=== PATIENT | male | born 1970 | race Caucasian/White ===

== ENCOUNTER 2020-05-22 15:00 | Outpatient (CLI) | payer BC ==
[~2020-05-22] VITALS: Ht 175.3 cm; Wt 77.7 kg
[2020-05-22] MEDS ORDERED: AMLO5TAB9 PO (15:53)
[2020-05-22] MEDS ORDERED: LISI-552 PO (15:53)
== END 2020-05-22 15:48 | disposition home or self-care (01) ==
LOC: PREOP 15:00
PROVIDERS: ATTEND Internal Medicine
DX: Z01.818 Encounter for other preprocedural examination (principal)

== ENCOUNTER 2020-05-26 08:01 | Day surgery (SDC) | payer BC ==
--- NOTE | 2020-05-12 10:52 | HISTORY AND PHYSICAL ---
DATE OF SERVICE: COLONOSCOPY HISTORY AND PHYSICAL HISTORY OF PRESENT ILLNESS: The patient is a 49-year-old white male referred by Dr. Danielle for his first screening colonoscopy. He is deemed to be of average risk as he is not aware of any family history for colon polyps or colon cancer. He denies melena or bright red blood per rectum, change in bowel habit, change in weight or abdominal pain. PAST MEDICAL HISTORY: Significant for hypertension with no known history of vascular disease. MEDICATIONS ON ADMISSION: Amlodipine 5 mg daily and lisinopril 20 mg daily. PAST SURGICAL HISTORY: He had what sounds like a septoplasty for deviated septum and right parotid surgery when he was young, removal of a benign growth. FAMILY HISTORY: Father is living at the age of 76. Has some vision problems. No other health issues. Mother living at the age of 76 with no reported health problems. He has one brother 47 years of age, alive and well with no reported health problems. SOCIAL HISTORY: The patient does at [facility] and has no past smoking or drinking history. REVIEW OF SYSTEMS: CONSTITUTIONAL: The patient denies night sweats, chills, fever or change in weight. CARDIOVASCULAR: The patient denies chest pain, dyspnea on exertion, orthopnea, PND, pedal edema, syncope or presyncope. PULMONARY: The patient denies cough, wheezing or shortness of breath. GASTROINTESTINAL: As noted in the HPI. PHYSICAL EXAMINATION: GENERAL: Reveals a male who appears to be in no acute distress. VITAL SIGNS: Weight 171.8 pounds, blood pressure 112/84, heart rate 70 and regular. Mallampati 2 pharyngeal configuration. Posterior pharynx clear. CHEST: Clear. CARDIOVASCULAR: Revealed a regular rate and rhythm without murmur, S3 or S4. ABDOMEN: Soft, supple without mass, organomegaly or tenderness. RECTAL: Deferred at the time of colonoscopy. EXTREMITIES: Reveal no cyanosis, clubbing or edema. ASSESSMENT AND PLAN: The patient is set up for screening colonoscopy. Prep instructions with the Suprep kit were given and questions were answered. I thank you for the referral of this pleasant gentleman. Job ID: [id number] DocumentID: [id number] Dictated Date: 05/04/2020 16:40:52 Polisher Dial Date: 05/04/2020 17:25:53 Dictated By: LUKASZ SONG MD
[2020-05-26] VITALS (11 sets, daily range): BP systolic 103–138; BP diastolic 59–86
[~2020-05-26] VITALS: Ht 175.3 cm; Wt 77.7 kg
[~2020-05-26 08:01] MED LIST: AMLO5TAB9 PO; LISI-552 PO
[2020-05-26] MEDS ORDERED: D5 LR IV SOLUTION 1,000 ML IV ONE (08:03)
[2020-05-26] MEDS ORDERED: D5 LR IV SOLUTION 1,000 ML IV STA (08:13)
[2020-05-26] MEDS ORDERED: LIDOCAINE JELLY 2% 6 ML SYRINGE MM PRN (08:15)
[2020-05-26] MEDS ORDERED: fentaNYL INJECTION 100 MCG/2 ML AMP IVP ONE (08:15)
[2020-05-26] MEDS ORDERED: MIDAZOLAM 5 MG/5 ML (VERSED) VIAL IV ONE (08:15)
[2020-05-26] MEDS ORDERED: LIDOCAINE JELLY 2% 6 ML SYRINGE ONE (08:41)
[2020-05-26] MEDS ORDERED: MIDAZOLAM 5 MG/5 ML (VERSED) VIAL ONE (08:41)
[2020-05-26] MEDS ORDERED: fentaNYL INJECTION 100 MCG/2 ML AMP ONE (08:41)
--- NOTE | 2020-05-26 08:42 | Pre-Op Note & Conscious Sedat ---
Pre-Operative Progress Note H&P Reviewed The H&P was reviewed, patient examined and no changes noted. Date H&P Reviewed: May 26, 2020 Time H&P Reviewed: 08:25 Conscious Sedation Pre-Proced ASA Score 2 For ASA 3 and 4: Consider anesthesia and medical clearance. Also, for patients with a history of failed moderate sedation consider anesthesia. Airway Lungs Heart ASA score ASA 1: a normal healthy patient ASA 2: a patient with a mild systemic disease (mid diabetes, controlled hypertension, obesity ASA 3: a patient with a severe systemic disease that limits activity (angina, COPD, prior Myocardial infarction) ASA 4: a patient with an incapacitating disease that is a constant threat to life (CHF, renal failure) ASA 5: a moribund patient not expected to survive 24 hrs. (ruptured aneurysm) ASA 6: a declared brain- patient whose organs are being harvested. For emergent operations, add the letter E after the classification Mallampati Classification Grade 2 Sedation Plan Analgesia, Amnesia, Plan communicated to team members, Discussed options with patient/fam, Discussed risks with patient/fam The patient is an appropriate candidate to undergo the planned procedure, sedation, and anesthesia. The patient immediately re-assessed prior to indication. LUKASZ SONG MD May 26, 2020 08:41
--- NOTE | 2020-05-26 10:00 | NUR ---
HAS TAKEN PO FLUIDS WITHOUT PROBLEM, DENIED PAIN, PASSED FLATUS AND REMAINED ALERT. STATES HE IS READY FOR DISMISSAL.
--- NOTE | 2020-05-26 15:45 | OPERATIVE REPORT ---
DATE OF SERVICE: COLONOSCOPY SUMMARY INDICATION FOR THE PROCEDURE: Screening. DESCRIPTION OF PROCEDURE: The patient was placed in the left lateral decubitus position. Prior to undergoing colonoscopy, digital rectal evaluation was performed. Anal sphincter tone was normal and the perianal reflexes intact. The prostate was moderately enlarged, anodular and nontender to digital inspection. No other abnormalities noted on digital inspection of anal canal or distal rectal vault. The colonoscope was then inserted into the rectum and under direct visualization advanced to cecum. The cecum was identified by identification of the ileocecal valve and cecal strap. The appendiceal orifice was identified as well. Quality of prep was good. The patient tolerated the procedure well. FINDINGS: No evidence for internal or external hemorrhoids and the rectum was unremarkable. The sigmoid colon was unremarkable. Present in the mid descending colon was a diminutive hyperplastic appearing polyp, was biopsied and ablated with no subsequent blood loss. The splenic flexure was unremarkable. Present in the distal transverse colon was a similar hyperplastic-appearing polyp. It was biopsied and ablated as well with no blood loss. The remainder of the transverse colon, hepatic flexure, ascending colon and cecum were unremarkable. ASSESSMENT: Two diminutive hyperplastic appearing polyps were noted and subsequently were removed, one from the mid descending and the other from the distal transverse colon with no subsequent blood loss. The patient is not aware of any family history for colon cancer, so would just advocate consideration for repeat screening colonoscopy in 10 years. Digital evaluation of the prostate was compatible with moderate BPH with no nodularity. I thank you for the referral of this pleasant gentleman. Job ID: [id number] DocumentID: [id number] Dictated Date: 05/26/2020 10:04:39 Underwear Finisher Date: 05/26/2020 15:44:23 Dictated By: LUKASZ SONG MD
== END 2020-05-26 10:00 | disposition home or self-care (01) ==
LOC: ENDO 08:01
PROVIDERS: ATTEND Internal Medicine
DX: Z12.11 Encounter for screening for malignant neoplasm of colon (principal); K63.5 Polyp of colon; N40.0 Benign prostatic hyperplasia without lower urinary tract symptoms; I10 Essential (primary) hypertension; Z79.899 Other long term (current) drug therapy

== ENCOUNTER → 2022-05-09 | Outpatient (CLI) | payer BC ==
[~2022-05-09] MED LIST changes: +AMLO-250 PO; -AMLO5TAB9 PO; -LISI-552 PO; +LISI20TA26 PO
--- NOTE | 2022-05-09 15:39 | Diagnostic Imaging Report ---
PROCEDURE: US Renal Bilateral. TECHNIQUE: Multiple real-time grayscale images were obtained over the kidneys in various projections bilaterally. INDICATION: Renal insufficiency. FINDINGS: Right kidney measures 10.4 x 4.5 x 5.4 cm. Left kidney measures 10.4 x 5.1 x 6.4 cm. Both kidneys demonstrate normal renal cortical thickness and echogenicity. There is no hydronephrosis, calculi, or mass. Both ureteral jets are visualized. There is a heterogeneous area along the posterior bladder wall possibly reflecting enlarged prostate. IMPRESSION: Unremarkable sonographic appearance of the kidneys. Heterogeneous area posterior to the bladder, possibly a mildly enlarged prostate. Recommend clinical correlation. Dictated by: Dictated on workstation # [id number]
== END ==
LOC: RAD 12:38
PROVIDERS: ATTEND Family Medicine
DX: N28.9 Disorder of kidney and ureter, unspecified (principal)
CPT/HCPCS: 76770